=== PATIENT | female | born 1950 | race African-American/Black ===

== ENCOUNTER 2023-12-19 23:50 | Emergency (ER) | payer OTHER ==
[2023-12-20 00:02] VITALS: BMI 40.6
[2023-12-20] MEDS ORDERED: ACETAMINOPHEN INJECTION 100 ML IVPB ONE (00:28)
[2023-12-20 00:30] LABS: BASO % 1.2 % (0-2.0); EOS % 4.9 % (0-4.5); HEMATOCRIT 32.1 % (32.4-45.2); HEMOGLOBIN 10.9 GM/dL (10.7-15.3); LYMPH % 29.2 % (8-40); MCH 30.5 pg (25.7-33.7); MCHC 33.8 g/dl (32.0-36.0); MEAN CELL VOLUME 90.4 fl (80-96); MEAN PLT VOLUME 8.5 fl (7.5-11.1); MONO % 10.1 % (3.8-10.2); NEUT % 54.6 % (42.8-82.8); PLATELET COUNT 255 10^3/uL (134-434); RBC 3.56 M/mm3 (3.60-5.2); WHITE BLOOD COUNT 9.9 K/mm3 (4.0-10.0)
[2023-12-20 00:36] LABS: INR 1.02 (0.83-1.09); PROTHROMBIN TIME (PATIENT) 11.8 SEC (9.7-13.0)
[2023-12-20] MEDS: ACETAMINOPHEN 1000 MG/100 ML BAG IVPB ONE (00:37)
[2023-12-20 00:39] LABS: ACTIVATED PTT 27.7 SECONDS (25.2-36.5)
[2023-12-20 00:53] LABS: POTASSIUM 4.1 mmol/L (3.5-5.1)
[2023-12-20 00:56] LABS: ALBUMIN 3.7 g/dl (3.4-5.0); CALCIUM 9.4 mg/dL (8.5-10.1)
[2023-12-20 00:57] LABS: BLOOD UREA NITROGEN 35.5 mg/dL (7-18)
[2023-12-20 01:01] LABS: BILIRUBIN,TOTAL 0.3 mg/dL (0.2-1); TOT PROT 7.3 g/dl (6.4-8.2)
[2023-12-20] MEDS ORDERED: KETOROLAC TROMETHAMINE 30 MG/1 ML VIAL ONE (01:43)
[2023-12-20] MEDS: SODIUM CHLORIDE 0.9% 500 ML INFUS.BAG IV ONE (01:47)
[2023-12-20] MEDS: KETOROLAC TROMETHAMINE 30 MG/1 ML VIAL IVPUSH ONE (01:47)
[2023-12-20] MEDS ORDERED: LIDOCAINE 4% PATCH TP ONE (02:04)
[2023-12-20] MEDS: LIDOCAINE 5% TOPICAL PATCH TP ONE (02:06)
[2023-12-20] MEDS ORDERED: BUPIVACAINE HCL/PF 0.5% (5MG/ML) 10 ML VIAL ONE (02:31)
[2023-12-20] MEDS ORDERED: methylPREDNISolone NA SUCC 125 MG/2 ML VIAL ONE (02:32)
[2023-12-20] MEDS: BUPIVACAINE HCL/PF 0.5% (5 MG/ML) 30 ML VIAL IJ ONE (02:33)
[2023-12-20] MEDS: methylPREDNISolone NA SUCC 125 MG/2 ML VIAL IM ONE (02:33)
[2023-12-20 03:08] VITALS: BP 121/63; PULSE 60; RESP 18; TEMP 97.3
[2023-12-20] MEDS ORDERED: LIDOCAINE PATCH REMOVAL MC ONE (14:00)
== END 2023-12-20 03:08 | disposition home or self-care (01) ==
LOC: JER 23:50
PROC: 3E033NZ Introduction of Analgesics, Hypnotics, Sedatives into Peripheral Vein, Percutaneous Approach (ICD-10-PCS; principal; 2023-12-20)
PROC: 3E0333Z Introduction of Anti-inflammatory into Peripheral Vein, Percutaneous Approach (ICD-10-PCS; 2023-12-20)
PROC: 3E023GC Introduction of Other Therapeutic Substance into Muscle, Percutaneous Approach (ICD-10-PCS; 2023-12-20)
DX: M25.511 Pain in right shoulder (principal); M79.601 Pain in right arm; M62.838 Other muscle spasm
CPT/HCPCS: 36415; 71045-TC-FY; 73030-TC-RT-FY; 80053; 84484; 85025; 85610; 85730; 93005; 93010; 96372; 96374; 96375; 99285-25; J0131